=== PATIENT | female | born 2000 | race Caucasian/White ===

== ENCOUNTER 2019-06-12 10:20 | Inpatient (IN) | payer OTHER ==
[~2019-06-12] VITALS: Ht 165.1 cm; Wt 51.6 kg
--- NOTE | 2019-06-12 10:53 | NUR ---
pt to ed for n/v/epigastric abd pain/sob/dizziness since tuesday. pt connected to all monitors. tachypneic, vss. Dr. Rooney to bs for assessment. no needs expressed. call light within reach. awaiting orders.
[2019-06-12] MEDS ORDERED: ONDANSETRON 2MG/ML, 2ML ONE (11:29)
[2019-06-12] MEDS ORDERED: MORPHINE SULFATE 4 MG/ML, 1ML ONE ×2 (11:29→15:02)
[2019-06-12] MEDS ORDERED: ONDANSETRON 2MG/ML, 2ML IVPush ONE (11:30)
[2019-06-12] MEDS ORDERED: SODIUM CHLORIDE FLUSH 10ML SYR IVF ONE (11:30)
[2019-06-12] MEDS ORDERED: SODIUM CHLORIDE 0.9% 1,000ML IVBOLUS ONE (11:30)
[2019-06-12] MEDS: MORPHINE SULFATE 4 MG/ML, 1ML IVPush PRN ×3 (11:37→20:51)
[2019-06-12 11:48] LABS: BASOPHILS # (AUTO) 0.02 x10^3/uL (0-0.3); BASOPHILS % (AUTO) 0 % (0-1); EOSINOPHILS # (AUTO) 0.03 x10^3/uL (0-0.8); EOSINOPHILS % (AUTO) 0 % (1-7); LYMPHOCYTES % (AUTO) 27 % (22-44); MD NO; MEAN CORPUSCULAR HEMOGLOBIN 29.5 pg (27.0-34.8); MEAN CORPUSCULAR HGB CONC 33.5 g/dL (32.4-35.8); MEAN CORPUSCULAR VOLUME 87.8 fL (80-100); MEAN PLATELET VOLUME 8.3 fL (7.4-10.4); MONOCYTES % (AUTO) 5 % (2-9); NEUTROPHILS # (AUTO) 5.03 x10^3/uL (1.8-8.0); NEUTROPHILS % (AUTO) 67 % (42-75); PLATELET COUNT 340 x10^3/uL (130-400); RED BLOOD COUNT 5.27 x10^6/uL (3.82-5.3); RED CELL DISTRIBUTION WIDTH 12.6 % (9.6-15.2)
--- NOTE | 2019-06-12 11:49 | NUR ---
us at bs. vss. pt medicated per aug. piv established and labs drawn. no needs expressed. call light within reach.
[2019-06-12 11:54] LABS: ALANINE AMINOTRANSFERASE 16 U/L (12-78); ALBUMIN 4.2 g/dL (3.4-5.0); ANION GAP 11 mmol/L (5-15); CALCIUM 9.3 mg/dL (8.5-10.1); CHLORIDE 111 mmol/L (98-107); CREATININE 0.69 mg/dL (0.55-1.02)
[2019-06-12 11:59] LABS: ALKALINE PHOSPHATASE 60 U/L (45-117); TOTAL PROTEIN 7.7 g/dL (6.4-8.2)
--- NOTE | 2019-06-12 12:03 | NUR ---
us remains at bs. vss. pt reports decreas in pain from 5/10 to 3/10. will obtain ua after us is complete.
--- NOTE | 2019-06-12 12:18 | NUR ---
pt up with sba from family to rr to provide ua sample. gait slow but steady. ua collected and sent to lab. pt reconnected to all monitors. vss. temp wnl. us complete. lab to bs to draw bc. awaiting lab resutls.
[2019-06-12 12:37] LABS: ACETONE, SERUM Trace (10mg/dL) mg/dL (Negative)
[2019-06-12 12:47] LABS: FREE T4 (FREE THYROXINE) 1.24 ng/dL (0.76-1.46)
--- NOTE | 2019-06-12 12:54 | NUR ---
Dr. Rooney to bs to update on resutls and discuss poc. awaiting further orders.
[2019-06-12] MEDS ORDERED: POTASSIUM CHLORIDE 40 MEQ in D5%-LACTATED RINGERS 1,000 ML IV SCH (13:00)
--- NOTE | 2019-06-12 13:11 | NUR ---
ivf ordered. requested from pharmacy.
[2019-06-12] MEDS ORDERED: NS + 40MEQ KCL 1,000 ML IV SCH ×2 (13:20→21:30)
[2019-06-12] MEDS ORDERED: ACETAMINOPHEN 325 MG TABLET PO PRN (13:30)
[2019-06-12] MEDS ORDERED: KETOROLAC 30 MG/1 ML IV PRN (13:30)
[2019-06-12] MEDS ORDERED: ONDANSETRON ODT 4 MG PO PRN (13:30)
--- NOTE | 2019-06-12 13:36 | NUR ---
after speaking with Dr. Rooney and Dr. Husain, plan to utilize ED ivf orders ([id number] @ 200mL/h). medication received from pharmacy. plant o admit. awaiting bed assignment.
--- NOTE | 2019-06-12 13:50 | NUR ---
late entry pt resting in room with family at bs. vss. pt reports pain is "ok for now." pt educated that medications are available if needed and the use the call light if any needs arrise. no needs exrpessed at this time. call light within reach. awaiting room assignment.
--- NOTE | 2019-06-12 15:27 | NUR ---
pt states pain is "getting worse." pt medicated for pain. vss. no other needs exrpessed. call light within reach. awaiting room assignment.
[2019-06-12] MEDS: LACTOBACILLUS CHEW TABLET PO SCH ×2 (15:43→20:44)
--- NOTE | 2019-06-12 15:43 | NUR ---
pt declining po intake at this time, including mediations. vss. no needs expressed. call light wtihin reach. awaiting room assignment.
--- NOTE | 2019-06-12 19:22 | NUR ---
REPORT TO ABRIL MARIA. PT READY FOR TRANSPORT. IVF NOT YET RECEIVED FROM PHARM. PHARM CONTACTED AND WILL SEND IVF TO ROOM 362.
[2019-06-12 20:02] VITALS: BP 100/67
[2019-06-12] MEDS: FAMOTIDINE 20 MG TABLET PO SCH (20:44)
[2019-06-12] MEDS: ONDANSETRON 2MG/ML, 2ML IVPush PRN (22:09)
[2019-06-13] VITALS (7 sets, daily range): BP systolic 93–110; BP diastolic 58–73
[2019-06-13] MEDS: ONDANSETRON 2MG/ML, 2ML IVPush PRN (05:12)
[2019-06-13 07:07] LABS: ANION GAP 7 mmol/L (5-15); CALCIUM 7.9 mg/dL (8.5-10.1); CHLORIDE 115 mmol/L (98-107); CREATININE 0.55 mg/dL (0.55-1.02)
[2019-06-13 07:09] LABS: MEAN CORPUSCULAR HEMOGLOBIN 29.7 pg (27.0-34.8); MEAN CORPUSCULAR HGB CONC 33.6 g/dL (32.4-35.8); MEAN CORPUSCULAR VOLUME 88.5 fL (80-100); MEAN PLATELET VOLUME 7.7 fL (7.4-10.4); PLATELET COUNT 252 x10^3/uL (130-400); RED BLOOD COUNT 4.01 x10^6/uL (3.82-5.3); RED CELL DISTRIBUTION WIDTH 12.4 % (9.6-15.2)
[2019-06-13 07:28] LABS: MD YES
[2019-06-13 08:40] LABS: EOS#(MANUAL) 0.08 x10^3/uL (0.0-0.8); EOS% (MANUAL) 2 % (1-7); LYMPH#(MANUAL) 1.98 x10^3/uL (1-6.1); LYMPHS% (MANUAL) 52 % (22-44); MONOS#(MANUAL) 0.19 x10^3/uL (0.3-2.7); MONOS% (MANUAL) 5 % (2-9); REACTIVE LYMPHS # (MANUAL) 0.11 x10^3/uL (0-0); REACTIVE LYMPHS % (MANUAL) 3 % (0-0); SEG#(MANUAL) 1.44 x10^3/uL (1.8-8); SEGS% (MANUAL) 38 % (42-75)
[2019-06-13 08:41] LABS: <PLATELET ESTIMATE> ADEQUATE; <PLT MORPHOLOGY> NORMAL PLT MORPH; <RBC MORPHOLOGY> NORMAL
[2019-06-13] MEDS: FAMOTIDINE 20 MG TABLET PO SCH ×2 (08:52→21:23)
[2019-06-13] MEDS: LACTOBACILLUS CHEW TABLET PO SCH ×3 (08:52→21:23)
[2019-06-13 11:48] LABS: CLOSTRIDIUM DIFFICILE ANTIGEN NEGATIVE; CLOSTRIDIUM DIFFICILE TOXIN NEGATIVE (Negative)
[2019-06-13] MEDS: MORPHINE SULFATE 4 MG/ML, 1ML IVPush PRN ×2 (12:08→21:23)
[2019-06-13] MEDS ORDERED: SODIUM CHLORIDE 0.9% 1,000 ML IV SCH (15:00)
[2019-06-14] VITALS (7 sets, daily range): BP systolic 90–106; BP diastolic 56–67
[2019-06-14 06:33] LABS: ANION GAP 6 mmol/L (5-15); CALCIUM 8.2 mg/dL (8.5-10.1); CHLORIDE 112 mmol/L (98-107)
[2019-06-14 06:35] LABS: CREATININE 0.56 mg/dL (0.55-1.02)
[2019-06-14 06:45] LABS: MEAN CORPUSCULAR HEMOGLOBIN 29.4 pg (27.0-34.8); MEAN CORPUSCULAR HGB CONC 33.2 g/dL (32.4-35.8); MEAN CORPUSCULAR VOLUME 88.5 fL (80-100); PLATELET COUNT 269 x10^3/uL (130-400); RED BLOOD COUNT 4.09 x10^6/uL (3.82-5.3); RED CELL DISTRIBUTION WIDTH 12.2 % (9.6-15.2)
[2019-06-14 07:17] LABS: MD YES
[2019-06-14 07:21] LABS: EOS#(MANUAL) 0.23 x10^3/uL (0.0-0.8); EOS% (MANUAL) 6 % (1-7); LYMPH#(MANUAL) 1.95 x10^3/uL (1-6.1); LYMPHS% (MANUAL) 50 % (22-44); MONOS#(MANUAL) 0.27 x10^3/uL (0.3-2.7); MONOS% (MANUAL) 7 % (2-9); SEG#(MANUAL) 1.44 x10^3/uL (1.8-8); SEGS% (MANUAL) 37 % (42-75)
[2019-06-14 07:22] LABS: <PLATELET ESTIMATE> ADEQUATE; <PLT MORPHOLOGY> NORMAL PLT MORPH; <RBC MORPHOLOGY> NORMAL
[2019-06-14] MEDS: LACTOBACILLUS CHEW TABLET PO SCH ×3 (08:46→21:31)
[2019-06-14] MEDS: FAMOTIDINE 20 MG TABLET PO SCH ×2 (08:46→21:32)
[2019-06-14] MEDS: MORPHINE SULFATE 4 MG/ML, 1ML IVPush PRN ×2 (11:12→21:31)
[2019-06-14] MEDS: SODIUM CHLORIDE 0.9% 1,000 ML IV SCH ×2 (15:00→22:54)
[2019-06-14 17:59] LABS: MICROSCOPIC NOT IND
[2019-06-14 18:05] LABS: CULTURE INDICATED? NO
[2019-06-15 02:28] VITALS: BP 98/60
[2019-06-15 08:40] VITALS: BP 102/68
[2019-06-15] MEDS: ACETAMINOPHEN 325 MG TABLET PO SCH ×2 (09:00→15:00)
[2019-06-15] MEDS: FAMOTIDINE 20 MG TABLET PO SCH (09:36)
[2019-06-15] MEDS: ONDANSETRON 2MG/ML, 2ML IVPush PRN (09:36)
[2019-06-15] MEDS: LACTOBACILLUS CHEW TABLET PO SCH (09:38)
[2019-06-15] MEDS: SODIUM CHLORIDE 0.9% 1,000 ML IV SCH (12:20)
[2019-06-15] MEDS ORDERED: ACID1TAB7 PO (12:36)
[2019-06-15] MEDS ORDERED: ACET325T26 PO (12:36)
[2019-06-15] MEDS ORDERED: ONDA4TAB13 PO (12:36)
[2019-06-15] MEDS: MORPHINE SULFATE 4 MG/ML, 1ML IVPush PRN (14:04)
[2019-06-15 14:11] VITALS: BP 99/65
== END 2019-06-15 16:30 | disposition home or self-care (01) | DRG 392 ==
LOC: ED 12:36 → INTOOBSV 13:00 → EDIP 13:00 → 3N 19:33 → OBSVTOIN 06-13 12:10 → DCLOUNGE 06-15 16:26
PROVIDERS: ADMIT Internal Medicine; ATTEND Internal Medicine
DX: A09 Infectious gastroenteritis and colitis, unspecified (principal); E16.2 Hypoglycemia, unspecified; E86.0 Dehydration; E87.6 Hypokalemia; R11.2 Nausea with vomiting, unspecified; I49.8 Other specified cardiac arrhythmias; Z80.8 Family history of malignant neoplasm of other organs or systems; Z82.49 Family history of ischemic heart disease and other diseases of the circulatory system; Z83.3 Family history of diabetes mellitus
CPT/HCPCS: 36415; 87046; 89055; 96374; 96375; 96376; 99285; J7121; 76700; 80048; 80053; 81003; 82010; 82533; 82962; 83690; 83735; 84100; 84300; 84439; 84443; 84703; 85025; 87040; 87324; 93005; G0378; J1885; J2405; J3480; Q0162; J2270; J7030